=== PATIENT | female | born 1935 | race Caucasian/White ===

== ENCOUNTER 2016-11-11 15:58 | Emergency (ER) | payer MEDICARE, OTHER ==
[~2016-11-11 15:58] MED LIST: AMARYL 2MG TABLE2 MG PO; AMIODARONE HCL200 MG PO; CRESTOR10 MG PO; DOXYCYCLINE HY100 M2 PO; EFFIENT10 MG PO; ELIQUIS 2.5 MG2.5 MG PO; ISOSORBIDE MONO60 MG PO; K-TAB ER20 MEQ PO; LASIX20 MG PO; LASIX40 MG PO; LEVOTHYROXINE100 MCG PO; LISINOPRIL10 MG PO; LOPRESSOR 25 MG25 MG PO; LORTAB 10-3251 EACH PO; NEURONTIN 400400 MG PO; PANTOPRAZOLE SO40 MG PO; SENNA8.6 MG PO; ZITHROMAX250 MG PO
== END 2016-11-11 19:43 | disposition home or self-care (01) ==
LOC: ER1 15:58
DX: S81.801A Unspecified open wound, right lower leg, initial encounter (principal); X58.XXXA Exposure to other specified factors, initial encounter; E11.9 Type 2 diabetes mellitus without complications; Z86.79 Personal history of other diseases of the circulatory system; Z88.2 Allergy status to sulfonamides; Z88.1 Allergy status to other antibiotic agents
CPT/HCPCS: 99283

== ENCOUNTER 2016-12-22 16:08 | Emergency (ER) | payer MEDICARE, OTHER | END 2016-12-22 20:40 | disposition home or self-care (01) | LOC: ER1 16:08 | DX: S80.12XA Contusion of left lower leg, initial encounter (principal); L03.116 Cellulitis of left lower limb; E11.628 Type 2 diabetes mellitus with other skin complications; Z86.79 Personal history of other diseases of the circulatory system; Z79.01 Long term (current) use of anticoagulants; Z96.643 Presence of artificial hip joint, bilateral; W20.8XXA Other cause of strike by thrown, projected or falling object, initial encounter; Y93.89 Activity, other specified; Z88.0 Allergy status to penicillin; Z88.1 Allergy status to other antibiotic agents | CPT/HCPCS: 73590; 99283; Q0162 ==

== ENCOUNTER 2017-01-04 11:58 | Emergency (ER) | payer MEDICARE, OTHER | END 2017-01-04 14:20 | disposition home or self-care (01) | LOC: ER1 11:58 | DX: S32.9XXA Fracture of unspecified parts of lumbosacral spine and pelvis, initial encounter for closed fracture (principal); E11.9 Type 2 diabetes mellitus without complications; I48.91 Unspecified atrial fibrillation; Z86.79 Personal history of other diseases of the circulatory system; X58.XXXA Exposure to other specified factors, initial encounter; Z88.1 Allergy status to other antibiotic agents; Z88.2 Allergy status to sulfonamides; Z88.8 Allergy status to other drugs, medicaments and biological substances; Z79.899 Other long term (current) drug therapy | CPT/HCPCS: 73502; 73552; 96374; 99284; J2270 ==

== ENCOUNTER 2020-11-19 17:12 | Inpatient (IN) | payer MEDICARE, OTHER ==
[~2020-11-19] VITALS: Ht 154.9 cm; Wt 68.6 kg
[~2020-11-19 17:12] MED LIST changes: -AMIODARONE HCL200 MG PO; +HYDROCODON-ACE1 EAC6 PO; +KEFLEX CAP 500500 MG PO; -LEVOTHYROXINE100 MCG PO; +LISINOPRIL-HCT1 EAC1 PO; -LISINOPRIL10 MG PO; -LORTAB 10-3251 EACH PO
[2020-11-20 00:44] LABS: HEMOGLOBIN 9.4 gm/dl (12.3-15.3); RED BLOOD COUNT 3.21 M/UL (4.00-5.10); WHITE BLOOD COUNT 13.3 K/UL (4.5-11.0)
[2020-11-20 01:06] LABS: BUN/CREATININE RATIO 45 (0-10)
[2020-11-20] MEDS ORDERED: PEG3350510 GM PO (11:10)
[2020-11-20] MEDS ORDERED: HYDROCODON-ACE1 EAC6 PO (11:17)
[2020-11-21 06:23] LABS: HEMOGLOBIN 8.5 gm/dl (12.3-15.3); RED BLOOD COUNT 2.9 M/UL (4.00-5.10); WHITE BLOOD COUNT 10.1 K/UL (4.5-11.0)
[2020-11-22 06:30] LABS: HEMOGLOBIN 7.4 gm/dl (12.3-15.3); RED BLOOD COUNT 2.62 M/UL (4.00-5.10); WHITE BLOOD COUNT 9.2 K/UL (4.5-11.0)
[2020-11-23 05:32] LABS: RED BLOOD COUNT 2.76 M/UL (4.00-5.10); WHITE BLOOD COUNT 9.2 K/UL (4.5-11.0)
[2020-11-24 05:37] LABS: RED BLOOD COUNT 2.82 M/UL (4.00-5.10); WHITE BLOOD COUNT 9.8 K/UL (4.5-11.0)
[2020-11-25 02:53] LABS: HEMOGLOBIN 8.1 gm/dl (12.3-15.3); RED BLOOD COUNT 2.77 M/UL (4.00-5.10); WHITE BLOOD COUNT 8.4 K/UL (4.5-11.0)
[2020-11-26 04:29] LABS: HEMOGLOBIN 8.2 gm/dl (12.3-15.3); RED BLOOD COUNT 2.81 M/UL (4.00-5.10); WHITE BLOOD COUNT 12.2 K/UL (4.5-11.0)
[2020-11-27 06:13] LABS: HEMOGLOBIN 9.1 gm/dl (12.3-15.3); WHITE BLOOD COUNT 12.5 K/UL (4.5-11.0)
[2020-11-27 06:18] LABS: RED BLOOD COUNT 3.13 M/UL (4.00-5.10)
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
[2020-11-28 04:06] LABS: HEMOGLOBIN 7.6 gm/dl (12.3-15.3); WHITE BLOOD COUNT 10.8 K/UL (4.5-11.0)
[2020-11-28 04:17] LABS: RED BLOOD COUNT 2.73 M/UL (4.00-5.10)
[2020-11-28] MEDS ORDERED: ASPIRIN EC81 MG PO (13:27)
[2020-11-28] MEDS ORDERED: THERAGRAN M TAB1 EA PO (13:27)
[2020-11-28] MEDS ORDERED: FERROUS GLUCON324 M1 PO (13:27)
[2020-11-28 15:15] LABS: A/G RATIO 0.8 (0.7-1.7); ALBUMIN 2.6 g/dL (2.9-4.4); ALPHA-1-GLOBULIN 0.3 g/dL (0.0-0.4); ALPHA-2-GLOBULIN 0.9 g/dL (0.4-1.0); BETA GLOBULIN 0.8 g/dL (0.7-1.3); GAMMA GLOBULIN 1.1 g/dL (0.4-1.8); GLOBULIN, TOTAL 3.2 g/dL (2.2-3.9); M-SPIKE Not Observed g/dL (Not Observed); PROTEIN, TOTAL, SERUM 5.8 g/dL (6.0-8.5)
== END 2020-11-28 17:02 | disposition home or self-care (01) | DRG 291 ==
LOC: ER1 17:12 → MED SURG 4 11-20 03:41 → CDU 11-20 03:41 → MED SURG 4 11-20 03:41
PROVIDERS: Family Medicine; Internal Medicine Infectious Disease; Physician Assistant; Student in an Organized Health Care Education/Training Program; ADMIT Internal Medicine
PROC: B24BZZ4 Ultrasonography of Heart with Aorta, Transesophageal (ICD-10-PCS; principal; 2020-11-21)
DX: I11.0 Hypertensive heart disease with heart failure (principal); G93.41 Metabolic encephalopathy; I48.20 Chronic atrial fibrillation, unspecified; T84.021A Dislocation of internal left hip prosthesis, initial encounter; N17.9 Acute kidney failure, unspecified; E87.1 Hypo-osmolality and hyponatremia; Z20.822 Contact with and (suspected) exposure to COVID-19; R53.81 Other malaise; E11.9 Type 2 diabetes mellitus without complications; E87.5 Hyperkalemia; D64.9 Anemia, unspecified; I25.10 Atherosclerotic heart disease of native coronary artery without angina pectoris; Z96.643 Presence of artificial hip joint, bilateral; W18.39XA Other fall on same level, initial encounter; I27.20 Pulmonary hypertension, unspecified; R29.6 Repeated falls; I50.33 Acute on chronic diastolic (congestive) heart failure; I48.0 Paroxysmal atrial fibrillation; Y83.8 Other surgical procedures as the cause of abnormal reaction of the patient, or of later complication, without mention of misadventure at the time of the procedure; Z79.01 Long term (current) use of anticoagulants; Z95.1 Presence of aortocoronary bypass graft; Z86.73 Personal history of transient ischemic attack (TIA), and cerebral infarction without residual deficits; Z79.82 Long term (current) use of aspirin; Z09 Encounter for follow-up examination after completed treatment for conditions other than malignant neoplasm; Z90.49 Acquired absence of other specified parts of digestive tract; Z90.710 Acquired absence of both cervix and uterus; Z82.49 Family history of ischemic heart disease and other diseases of the circulatory system; Z79.4 Long term (current) use of insulin
CPT/HCPCS: ECHO; 36415; 71045; 72192; 73502; 80048; 80053; 82550; 82553; 82962; 83735; 83874; 83880; 84132; 84155; 84165; 84484; 85025; 90471; 90715; 93005; 93306; 96374; 96375; 96376; 97110; 97110-GP-CQ; 97116-GP-CQ; 97162; 97165; 97530; 97530-GP-CQ; 97535; 99285; A6212; G0378; J1885; J1940; J2270; J7040; U0002

== ENCOUNTER 2020-11-29 17:51 | Observation (INO) | payer MEDICARE, OTHER ==
[~2020-11-29] VITALS: Ht 154.9 cm; Wt 67.6 kg
[~2020-11-29 17:51] MED LIST changes: +ASPIRIN EC81 MG PO; +FERROUS GLUCON324 M1 PO; +PEG3350510 GM PO; +THERAGRAN M TAB1 EA PO
[2020-11-29 19:08] LABS: HEMOGLOBIN 7.9 gm/dl (12.3-15.3); RED BLOOD COUNT 2.72 M/UL (4.00-5.10); WHITE BLOOD COUNT 11.2 K/UL (4.5-11.0)
[2020-11-29 19:36] LABS: BUN/CREATININE RATIO 32 (0-10)
[2020-11-30] MEDS ORDERED: AMIODARONE HCL200 MG PO (00:07)
[2020-11-30] MEDS ORDERED: LASIX20 MG PO (00:21)
[2020-11-30 03:51] LABS: HEMOGLOBIN 7.4 gm/dl (12.3-15.3); RED BLOOD COUNT 2.61 M/UL (4.00-5.10); WHITE BLOOD COUNT 8.8 K/UL (4.5-11.0)
[2020-11-30] MEDS ORDERED: LASIX40 MG PO (08:53)
[2020-11-30] MEDS ORDERED: AMARYL4 MG PO (08:56)
[2020-11-30] MEDS ORDERED: HYDROCODON-ACE1 EAC6 PO (08:57)
[2020-11-30] MEDS ORDERED: ELIQUIS2.5 MG PO (08:58)
[2020-11-30] MEDS ORDERED: ZESTORETIC 20-1 EACH PO (08:58)
[2020-11-30] MEDS ORDERED: CRESTOR10 MG PO (08:58)
[2020-11-30] MEDS ORDERED: NITROSTAT 0.40.4 MG SL (09:01)
[2020-11-30] MEDS ORDERED: ARTHRITIS PAIN650 M1 PO (09:02)
[2020-11-30] MEDS ORDERED: ALL DAY ALLERGY10 MG PO (11:14)
[2020-12-03] MEDS ORDERED: HYDROCODON-ACE1 EAC4 PO (12:17)
[2020-12-05 06:47] LABS: HEMOGLOBIN 8.4 gm/dl (12.3-15.3); RED BLOOD COUNT 2.94 M/UL (4.00-5.10); WHITE BLOOD COUNT 8.5 K/UL (4.5-11.0)
[2020-12-06 03:35] LABS: RED BLOOD COUNT 2.74 M/UL (4.00-5.10); WHITE BLOOD COUNT 9.7 K/UL (4.5-11.0)
[2020-12-06 16:12] LABS: A/G RATIO 0.8 (0.7-1.7); ALBUMIN 2.5 g/dL (2.9-4.4); ALPHA-1-GLOBULIN 0.3 g/dL (0.0-0.4); BETA GLOBULIN 0.8 g/dL (0.7-1.3); GLOBULIN, TOTAL 3.2 g/dL (2.2-3.9); HEMATOCRIT 26.3 % (34.0-46.6); IMMUNOFIXATION RESULT, SERUM Comment: (.); IMMUNOGLOBULIN A, QN, SERUM 191 mg/dL (64-422); IMMUNOGLOBULIN G, QN, SERUM 888 mg/dL (586-1602); IMMUNOGLOBULIN M, QN, SERUM 227 mg/dL (26-217); M-SPIKE Not Observed g/dL (Not Observed); PROTEIN, TOTAL, SERUM 5.7 g/dL (6.0-8.5)
[2020-12-08 04:06] LABS: HEMOGLOBIN 8.7 gm/dl (12.3-15.3)
[2020-12-08 04:18] LABS: RED BLOOD COUNT 3.02 M/UL (4.00-5.10)
--- NOTE | 2020-12-10 16:10 | NUR ---
report given to sissy admitting nurse at [facility]
== END 2020-12-10 17:38 ==
LOC: ER1 17:51 → CDU 21:16 → M/S 21:16
PROVIDERS: Emergency Medicine; Registered Nurse; ADMIT Family Medicine
DX: T84.021A Dislocation of internal left hip prosthesis, initial encounter (principal); I11.0 Hypertensive heart disease with heart failure; I50.32 Chronic diastolic (congestive) heart failure; E87.5 Hyperkalemia; D64.9 Anemia, unspecified; E11.9 Type 2 diabetes mellitus without complications; E03.9 Hypothyroidism, unspecified; I48.20 Chronic atrial fibrillation, unspecified; Z86.73 Personal history of transient ischemic attack (TIA), and cerebral infarction without residual deficits; Z95.1 Presence of aortocoronary bypass graft; Z90.710 Acquired absence of both cervix and uterus; Z90.49 Acquired absence of other specified parts of digestive tract; Z96.643 Presence of artificial hip joint, bilateral; Z82.49 Family history of ischemic heart disease and other diseases of the circulatory system; Z79.82 Long term (current) use of aspirin; Z79.899 Other long term (current) drug therapy; Z91.81 History of falling; Z79.01 Long term (current) use of anticoagulants; Z20.822 Contact with and (suspected) exposure to COVID-19; Y79.2 Prosthetic and other implants, materials and accessory orthopedic devices associated with adverse incidents
CPT/HCPCS: 36415; 73502; 80048; 80053; 82550; 82553; 82607; 82728; 82747; 82784; 83540; 83550; 83735; 83874; 83883; 83921; 84155; 84165; 84484; 85025; 85027; 86334; 96374; 96375; 97110; 97110-GP-CQ; 97161; 97530; 97530-GP-CQ; 99285; G0378; J2270; J2405; U0002

== ENCOUNTER 2021-01-07 14:19 | Inpatient (IN) | payer MEDICARE, OTHER ==
[~2021-01-07] VITALS: Ht 152.4 cm; Wt 60.3 kg
[~2021-01-07 14:19] MED LIST changes: +ALL DAY ALLERGY10 MG PO; +AMARYL4 MG PO; +AMIODARONE HCL200 MG PO; +ARTHRITIS PAIN650 M1 PO; +ELIQUIS2.5 MG PO; +HYDROCODON-ACE1 EAC4 PO; +NITROSTAT 0.40.4 MG SL; +ZESTORETIC 20-1 EACH PO
[2021-01-07 15:05] LABS: HEMOGLOBIN 9.6 gm/dl (12.3-15.3); RED BLOOD COUNT 3.49 M/UL (4.00-5.10); WHITE BLOOD COUNT 15.9 K/UL (4.5-11.0)
[2021-01-07 15:36] LABS: BUN/CREATININE RATIO 33 (0-10)
--- NOTE | 2021-01-07 22:55 | NUR ---
notified dr castro that pt's home med list had been reviewed and needed to be resumes. recieved no new orders at this time. will continue to monitor.
[2021-01-08 06:01] LABS: HEMOGLOBIN 10.1 gm/dl (12.3-15.3); RED BLOOD COUNT 3.72 M/UL (4.00-5.10); WHITE BLOOD COUNT 15.9 K/UL (4.5-11.0)
[2021-01-08] MEDS ORDERED: HYDROCODON-ACE1 EAC6 PO (09:09)
--- NOTE | 2021-01-08 21:54 | NUR ---
NOTIFIED OF [id number]. ADMINISTERED 10 UNITS ORDERED. WILL CONTINUE TO MONITOR
[2021-01-08] MEDS ORDERED: SYNTHROID112 MCG PO (23:58)
[2021-01-09 10:31] LABS: BUN/CREATININE RATIO 37 (0-10)
[2021-01-10 05:31] LABS: BUN/CREATININE RATIO 32 (0-10)
[2021-01-11 03:59] LABS: HEMOGLOBIN 8.7 gm/dl (12.3-15.3); WHITE BLOOD COUNT 14.6 K/UL (4.5-11.0)
[2021-01-11 04:02] LABS: RED BLOOD COUNT 3.26 M/UL (4.00-5.10)
[2021-01-11 04:15] LABS: BUN/CREATININE RATIO 30 (0-10)
[2021-01-12 06:23] LABS: BUN/CREATININE RATIO 37 (0-10)
[2021-01-13 04:04] LABS: HEMOGLOBIN 8.9 gm/dl (12.3-15.3); RED BLOOD COUNT 3.35 M/UL (4.00-5.10)
[2021-01-13 04:06] LABS: WHITE BLOOD COUNT 10.2 K/UL (4.5-11.0)
[2021-01-13 04:28] LABS: BUN/CREATININE RATIO 45 (0-10)
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
[2021-01-15 05:00] LABS: BUN/CREATININE RATIO 52 (0-10)
== END 2021-01-15 18:43 | disposition home or self-care (01) | DRG 871 ==
LOC: ER1 14:19 → CDU 17:51 → MED SURG 4 17:51
PROVIDERS: Emergency Medicine; Internal Medicine; ADMIT Family Medicine
PROC: 05HM33Z Insertion of Infusion Device into Right Internal Jugular Vein, Percutaneous Approach (ICD-10-PCS; principal; 2021-01-07)
DX: A41.51 Sepsis due to Escherichia coli [E. coli] (principal); G93.41 Metabolic encephalopathy; R65.21 Severe sepsis with septic shock; R53.2 Functional quadriplegia; N30.00 Acute cystitis without hematuria; T84.091A Other mechanical complication of internal left hip prosthesis, initial encounter; N17.9 Acute kidney failure, unspecified; I48.21 Permanent atrial fibrillation; I25.10 Atherosclerotic heart disease of native coronary artery without angina pectoris; D64.9 Anemia, unspecified; E11.40 Type 2 diabetes mellitus with diabetic neuropathy, unspecified; F03.90 Unspecified dementia, unspecified severity, without behavioral disturbance, psychotic disturbance, mood disturbance, and anxiety; I95.9 Hypotension, unspecified; E16.2 Hypoglycemia, unspecified; E03.9 Hypothyroidism, unspecified; E78.5 Hyperlipidemia, unspecified; I11.0 Hypertensive heart disease with heart failure; I50.9 Heart failure, unspecified; Z20.822 Contact with and (suspected) exposure to COVID-19; Z82.49 Family history of ischemic heart disease and other diseases of the circulatory system; Z95.1 Presence of aortocoronary bypass graft; Z88.2 Allergy status to sulfonamides; Z79.4 Long term (current) use of insulin; Z88.6 Allergy status to analgesic agent; Z88.1 Allergy status to other antibiotic agents; Z91.040 Latex allergy status
CPT/HCPCS: 36415; 36556; 71045; 80048; 80053; 80202; 81001; 82550; 82553; 82962; 83605; 83735; 83880; 84100; 84484; 85025; 87040; 87077; 87086; 87186; 93005; 94760; 96365; 96375; 96376; 97110; 97110-GP-CQ; 97162; 97166; 97530-GP-CQ; 99285; A6212; C1751; J1335; J1940; J2543; J3370; J7030; J7070; U0002